=== PATIENT | male | born 1970 | race Caucasian/White ===

== ENCOUNTER 2019-03-19 05:46 | Day surgery (SDC) | payer OTHER ==
[2019-03-19 06:50] LABS: ADD MAN DIFF? NO
[2019-03-19 06:55] LABS: BASOPHIL # 0.1 10^3/ul (0.0-0.1); BASOPHILS % 0.8 % (0.0-2.0); EOSINOPHILS # 0.2 10^3/ul (0.0-0.5); EOSINOPHILS % 3.4 % (0.0-7.0); HEMATOCRIT 39.2 % (42.0-52.0); HEMOGLOBIN 13.5 g/dl (14.0-18.0); LYMPHOCYTES # 2.4 10^3/ul (0.8-2.9); LYMPHOCYTES % 36.1 % (15.0-51.0); MEAN CORPUSCULAR HEMOGLOBIN 30.2 pg (29.0-33.0); MEAN CORPUSCULAR HGB CONC 34.4 g/dl (32.0-37.0); MEAN CORPUSCULAR VOLUME 87.7 fl (82.0-101.0); MEAN PLATELET VOLUME 9.3 fl (7.4-10.4); MONOCYTE # 0.6 10^3/ul (0.3-0.9); MONOCYTES % 9.1 % (0.0-11.0); NEUTROPHIL # 3.3 10^3/ul (1.6-7.5); NEUTROPHILS % 50.1 % (39.0-77.0); PLATELET COUNT 192 10^3/UL (140-415); RED BLOOD COUNT 4.47 10^6/ul (4.70-6.10); RED CELL DISTRIBUTION WIDTH 12.1 % (11.5-14.5)
[2019-03-19 06:55] LABS: WHITE BLOOD COUNT 6.5 10^3/ul (4.8-10.8)
[2019-03-19 07:12] LABS: INR 0.96; PARTIAL THROMBOPLASTIN TIME 27.6 Sec (23.0-35.0); PROTIME 12.9 Sec (11.9-14.9)
[2019-03-19 07:17] LABS: ALANINE AMINOTRANSFERASE 34 IU/L (13-69); ALBUMIN 4.2 g/dl (3.3-4.9); ALBUMIN/GLOBULIN RATIO 1.23; ALKALINE PHOSPHATASE 61 IU/L (42-121); ANION GAP 10 (5-13); ASPARTATE AMINO TRANSFERASE 27 IU/L (15-46); BILIRUBIN,INDIRECT 0.7 mg/dl (0-1.1); BILIRUBIN,TOTAL 0.7 mg/dl (0.2-1.3); BLOOD UREA NITROGEN 10 mg/dl (7-20); CALCIUM 9.2 mg/dl (8.4-10.2); CARBON DIOXIDE 24 mmol/L (21-31); CHLORIDE 109 mmol/L (97-110); CREATININE 0.68 mg/dl (0.61-1.24); Estimated GFR > 60 mL/min (>60); GLUCOSE 101 mg/dl (70-220); POTASSIUM 3.7 mmol/L (3.5-5.1); SODIUM 143 mmol/L (135-144); TOTAL PROTEIN 7.6 g/dl (6.1-8.1)
[2019-03-19] MEDS ORDERED: PROPOFOL 20 ML ×3 (07:24→08:02)
[2019-03-19] MEDS ORDERED: LIDOCAINE 2% (SDV) 5 ML INJ (07:24)
[2019-03-19] MEDS ORDERED: MIDAZOLAM 1 MG/ML 2 ML INJ (07:24)
[2019-03-19] MEDS ORDERED: CEFAZOLIN 2 GM/50 ML (PMX) 50 ML IVPB (07:30)
[2019-03-19] MEDS ORDERED: SUCCINYLCHOLINE CHLORIDE 100 MG/5 ML SYG IV (08:02)
[2019-03-19] MEDS ORDERED: ROCURONIUM 50 MG INJ ×2 (08:07)
[2019-03-19] MEDS ORDERED: CEFAZOLIN 1 GM INJ (08:07)
[2019-03-19] MEDS ORDERED: ONDANSETRON 4 MG INJ ×2 (08:09→12:15)
[2019-03-19] MEDS ORDERED: DEXAMETHASONE 4 MG/ML 5 ML INJ (08:09)
[2019-03-19] MEDS ORDERED: FAMOTIDINE 20 MG INJ (08:09)
[2019-03-19] MEDS: EPINEPHrine 1 MG/ML 30 ML INJ IRR (08:17)
[2019-03-19] MEDS ORDERED: HYDROmorphONE 2 MG/ML SYG (10:40)
[2019-03-19] MEDS ORDERED: GLYCOPYRROLATE 0.4 MG INJ (11:12)
[2019-03-19] MEDS ORDERED: NEOSTIGMINE 3 MG/3 ML SYRINGE (11:12)
[2019-03-19] MEDS: morphine SULFATE/PF (10 MG/10 ML) INJ (11:16)
[2019-03-19] MEDS ORDERED: HYDROCODONE/APAP (5/325) TAB PO (12:00)
[2019-03-19] MEDS ORDERED: HYDROmorphONE 1 MG/5 ML IV SYRINGE IV ×3 (12:15→12:30)
[2019-03-19] MEDS: HYDROmorphONE 1 MG/5 ML IV SYRINGE IV (12:27)
[2019-03-19] MEDS: ONDANSETRON 4 MG INJ IV (12:27)
[2019-03-19] MEDS ORDERED: hydrALAzine 20 MG INJ IV (12:30)
[2019-03-19] MEDS ORDERED: MEPERIDINE 25 MG INJ IV (12:30)
[2019-03-19] MEDS ORDERED: EPHEDrine SULFATE 50 MG/5 ML SYG IV (12:30)
[2019-03-19] MEDS ORDERED: DIPHENHYDRAMINE 50 MG INJ IV (12:30)
[2019-03-19] MEDS ORDERED: PROCHLORPERAZINE 10 MG INJ IV (12:30)
[2019-03-19] MEDS ORDERED: FENTAnyl 50 MCG/ML VIAL IV ×3 (12:30)
[2019-03-19] MEDS ORDERED: LABETALOL HCL 20MG INJ IV (12:30)
[2019-03-19] MEDS: HYDROCODONE/APAP (5/325) TAB PO (12:48)
[2019-03-19] MEDS: HYDROmorphONE 1 MG/ML SYG IV (13:21)
== END 2019-03-19 13:24 | disposition home or self-care (01) ==
LOC: SDS 05:46
DX: M23.211 Derangement of anterior horn of medial meniscus due to old tear or injury, right knee (principal); M23.261 Derangement of other lateral meniscus due to old tear or injury, right knee; M22.41 Chondromalacia patellae, right knee; M65.861 Other synovitis and tenosynovitis, right lower leg; M23.41 Loose body in knee, right knee; Z87.891 Personal history of nicotine dependence
CPT/HCPCS: 29880; 80053; 85025; 85610; 85730